=== PATIENT | male | born 1955 | race African-American/Black ===

== ENCOUNTER → 2020-03-09 09:43 | Outpatient (CLI) | payer MEDICARE, SELFPAY | DX: R06.02 Shortness of breath (principal); R06.2 Wheezing | CPT/HCPCS: 94642 ==

== ENCOUNTER → 2020-05-02 09:23 | Outpatient (CLI) | payer MEDICARE, OTHER, SELFPAY | DX: J98.01 Acute bronchospasm (principal) | CPT/HCPCS: 94642 ==